=== PATIENT | male | born 1965 | race Caucasian/White ===

== ENCOUNTER 2017-03-11 10:45 | Emergency (ER) | payer BC, OTHER, SELFPAY ==
[~2017-03-11] VITALS: Ht 172.7 cm; Wt 98.9 kg
[~2017-03-11 10:45] MED LIST: /CIPR75TA PO; BYETTA SC; CIPR25SS OR; FLAG250T OR; FLAG500T OR; GLUC1000 OR; LISI10TA4 OR; MULTIVIT PO; OMEP20TA7 PO; PRAV20TA2 OR; TRAM50TA2 OR; VICO5TAB OR; VITA400C OR; VITAMIN B COMPLE1 PO
[2017-03-11] MEDS ORDERED: TRES1INJ2 SC (11:01)
[2017-03-11] MEDS ORDERED: TRUL0.5I SC (11:01)
[2017-03-11] MEDS ORDERED: JARD1TAB3 PO (11:01)
[2017-03-11 11:46] LABS: BASO % 0.3 % (0.0-1.0); EOS # 0.1 K/mm3 (0.0-0.50); EOS % 1.4 % (0.0-3.0); LARGE UNSTAINED CELL # 0.1 K/mm3 (0.0-0.4); LARGE UNSTAINED CELL % 1.2 % (0.0-4.0); LYMPH # 1.8 K/mm3 (1.5-4.5); LYMPH % 18.5 % (24.0-44.0); MEAN CORPUSCULAR HEMOGLOBIN 30.8 pg (27.0-33.0); MEAN CORPUSCULAR HGB CONC 34.8 g/dl (32.0-36.5); MEAN CORPUSCULAR VOLUME 88.5 fl (80.0-96.0); MONO # 0.5 K/mm3 (0.0-0.8); MONO % 5.2 % (0.0-5.0); NEUTROPHILS # 7.2 K/mm3 (1.8-7.7); NEUTROPHILS % 73.3 % (36.0-66.0); PLATELET COUNT, AUTOMATED 260 k/mm3 (150-450); RED CELL DISTRIBUTION WIDTH 13.3 % (11.5-14.5); WHITE BLOOD COUNT 9.8 K/mm3 (4.0-10.0)
[2017-03-11 11:54] LABS: ANION GAP 8 MEQ/L (8-16); BLOOD UREA NITROGEN 24 MG/DL (7-18); CALCIUM LEVEL 8.6 MG/DL (8.5-10.1); CARBON DIOXIDE LEVEL 26 MEQ/L (21-32); CHLORIDE LEVEL 103 MEQ/L (98-107); CREATININE FOR GFR 1.29 MG/DL (0.70-1.30); GLOMERULAR FILTRATION RATE > 60.0 (>56); GLUCOSE, FASTING 238 MG/DL (70-105); POTASSIUM SERUM 4.5 MEQ/L (3.5-5.1); SODIUM LEVEL 137 MEQ/L (136-145)
--- NOTE | 2017-03-11 12:14 | REP ---
Chest x-ray: Two views. History: Chest pain . Comparison study: November 28, 2011 . Findings: The lungs are well inflated and free of infiltrate. The pleural angles are sharp. The heart size is normal. Pulmonary vasculature is not increased. No significant bony abnormality is seen. Impression: Negative chest x-ray. Signed by Levar Guo MD 03/11/2017 12:06 P
[2017-03-11] MEDS ORDERED: ISOVUE-370 76% 100ML VIAL (Q9967) As Ordered ONE (13:55)
[2017-03-11] MEDS ORDERED: ASPIRIN 81 MG CHEW TABLET PO ONE (14:00)
--- NOTE | 2017-03-11 14:38 | REP ---
CT PULMONARY ANGIOGRAM: With IV contrast. HISTORY: Question pulmonary embolism. COMPARISON STUDIES: No comparison CT studies. Comparison is made with today's chest x-ray. Contrast dose: 75 mL of Isovue [address] TECHNIQUE: Helical scanning is acquired and overlapping 1.5 mm and contiguous 3 mm axial images are reformatted. In addition, a 3D work station is deployed to generate thick slab maximum intensity projection images in sagittal and coronal imaging projections. CT PULMONARY ANGIOGRAPHIC FINDINGS: There is good opacification of the pulmonary arterial tree. There is no CT evidence of pulmonary embolism. Maximal intensity projection images show no vessel cutoff or filling defect. The thoracic aorta shows some atherosclerotic calcification but no evidence of aneurysm or dissection. There is no evidence of pleural or pericardial effusion. No pulmonary nodule or mass lesion is appreciated. No hilar or mediastinal mass or adenopathy is observed. There is some plate-like atelectasis in the right lower lobe mild in degree. There are degenerative changes in the thoracic spine. No bony destructive lesion is appreciated. No adrenal lesion is seen. The visualized upper abdominal structures are unremarkable. IMPRESSION: Negative CT pulmonary angiogram. No CT evidence of pulmonary embolism. Plate-like atelectasis right lower lobe. Otherwise negative study. Signed by Levar Guo MD 03/11/2017 04:46 P
[2017-03-11 18:19] VITALS: BP 108/51
--- NOTE | 2017-03-12 08:03 | ECGEPIP ---
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 RBBB PRWP NO PRIORS Electronically Signed On 03-12-2017 8:03:00 EDT by Jose Estevez
--- NOTE | 2017-03-12 08:23 | ECGEPIP ---
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
== END 2017-03-11 18:20 | disposition home or self-care (01) ==
LOC: M ED 12:29
DX: R07.2 Precordial pain (principal); E11.9 Type 2 diabetes mellitus without complications; E78.5 Hyperlipidemia, unspecified; K21.9 Gastro-esophageal reflux disease without esophagitis; K76.9 Liver disease, unspecified; Z87.891 Personal history of nicotine dependence; Z79.4 Long term (current) use of insulin; Z79.899 Other long term (current) drug therapy
CPT/HCPCS: 36415; 71020; 71275; 80048; 82550; 82553; 85025; 93005; 93041; 94760; 99285; Q9967

== ENCOUNTER 2017-10-28 10:37 | Emergency (ER) | payer SELFPAY, OTHER | END 2017-10-28 12:39 | disposition left against medical advice (07) | LOC: M ED 10:37 | DX: Z53.21 Procedure and treatment not carried out due to patient leaving prior to being seen by health care provider (principal) ==